=== PATIENT | male | born 1995 | race Caucasian/White ===

== ENCOUNTER → 2021-08-25 | Outpatient (CLI) | payer OTHER ==
--- NOTE | 2021-08-25 10:23 | RAD ---
US TESTICULAR History: LT TESTICULAR SWELLING X1 YEAR, RADIATING PAIN TO PELVIS Comparison: None. Technique: Multiple grayscale, color flow Doppler and Doppler spectral analysis images of the scrotum are obtained. Findings: Right testicle measures 4.5 x 1.7 x 2.7 cm. Right testicle demonstrates normal parenchymal echogenici ty. The right epididymis is unremarkable. Left testicle measures 3.9 x 1.6 x 2.8 cm. Left testicle demonstrates normal parenchymal echogenicity . The left epididymis is unremarkable. There is no hydrocele. Multiple dilated left pampiniform plexus vessels measure up to 5 mm diameter w ith Valsalva. No scrotal hyperemia or swelling. Doppler imaging demonstrates normal flow to both testicles, without evidence of torsion. IMPRESSION: 1. Left varicocele. 2. No evidence of testicular mass or torsion. Electronically signed by: Ashutosh Gonzales MD (08/25/2021 10:20 AM) [id number]
== END ==
LOC: US 09:29
PROVIDERS: ATTEND Nurse Practitioner Adult Health
DX: I86.1 Scrotal varices (principal); N49.2 Inflammatory disorders of scrotum; N50.89 Other specified disorders of the male genital organs
CPT/HCPCS: 76870

== ENCOUNTER 2021-09-01 17:37 | Emergency (ER) | payer OTHER ==
[~2021-09-01] VITALS: Ht 185.4 cm; Wt 79.6 kg
--- NOTE | 2021-09-01 17:58 | PHYS DOC ---
Past History Past Medical History: No Pertinent History Past Surgical History: Other Additional Past Surgical Histo: Left ACL reconstruction Smoking: Non-smoker Alcohol Use: Rarely Additional Alcohol Information: Social EtOH Drug Use: None General Adult EDM: Chief Complaint: TESTICULAR PAIN OR INJURY HPI: HPI: 26-year-old male presents to the emergency department via triage with a chief complaint of left-sided testicular pain and swelling since Monday. He reports presenting for outpatient management of same complaint earlier in the week where an outpatient scrotal ultrasound was done. [facility] taken on 25 August reported a left-sided varicocele without evidence of torsion or vascular issues. We were unable to locate results from a u rinalysis taken earlier in the week. Patient reports similar pain as previously; -04/03, constant, throbbing. Pain radiates to proximal left pelvis and lower left back. His testicular pain is worse with walking and weight bearing and improves with lying down. Patient denies dysuria, reports last period of sexual activity being in November with none since. Patient denies family history of kidney disease or testicular torsion. Patient denies any recent surgeries. Patient denies any history of hernia or feelings of a bulge in his groin. Patient denies recent trauma to the region Patient reports that the left testicle has a bag of worms appearance on the lower portion. He states that this appearance has been stable over the last year approximately with no recent significant changes other than the pain this week. Review of Systems: Review of Systems: Constitutional: Denies fever or chills Eyes: Denies redness or eye pain HENT: Denies nasal congestion or sore throat Respiratory: Denies cough or shortness of breath Cardiovascular: Denies chest pain or palpitations GI: Denies abdominal pain, nausea, or vomiting : Denies dysuria or hematuria; reports left testicular pain and swelling Musculoskeletal: Denies joint pain; reports left lower back pain Integument: Denies rash or skin lesions Neurologic: Denies headache, focal weakness or sensory changes Complete systems were reviewed and found to be within normal limits, except as documented in this note. Family History: Family History: Denies family history of cystic kidney disease or testicular pathology Allergies: Allergies: Allergies Coded Allergies Type Severity Reaction Last Updated Verified No Known Drug Allergies 08/26/14 No Physical Exam: PE: Constitutional: Well developed, well nourished, no acute distress, non-toxic appearance HENT: Normocephalic, atraumatic Eyes: Conjunctiva normal, no discharge Neck: Normal range of motion, no tenderness, supple Lungs & Thorax: No respiratory distress, normal chest wall excursion bilaterally, lungs clear to auscultation all rodas, +2 peripheral pulses bilaterally, regular rate and rhythm Abdomen: Soft, no tenderness on palpation of all quadrants, no rebound tenderness, no abdominal bruit appreciated : On visual inspection of the patient's scrotum the left side was twice as large as the right, the skin on the left side was mildly erythematous without skin breakdown or ulceration, the inferior portion of the left testicle was appreciated to be firm and indurated, uncertain cremasteric reflex bilaterally, negative Prehn sign on the left. Skin: Warm, dry, no erythema, no rash Back: No tenderness, no CVA tenderness bilaterally Extremities: No tenderness, ROM intact, no edema Neurologic: Alert and oriented X 3, normal motor function, normal sensory function, no focal deficits noted Psychologic: Affect normal, judgment normal Current Patient Data: Vital Signs: Vital Signs Date Time Temp Pulse Resp B/P (MAP) Pulse Ox O2 Delivery O2 Flow Rate FiO2 09/01/21 17:44 98.3 65 16 143/90 (107) 99 Room Air EKG: EKG: [] Radiology/Procedures: Radiology/Procedures: [] Impressions: PROCEDURE: TESTICULAR/SCROTUM EXAMINATION: US TESTICULAR (SCROTAL ULTRASOUND) CLINICAL HISTORY: Left testicular swelling/pain, eval for torsion TECHNIQUE: Sonography of the scrotal contents with color flow and spectral Doppler imaging of the testicular vasculature was performed. COMPARISON: 08/25/2021 FINDINGS: RIGHT SCROTUM: - Right Testis: 4.3 x 2.4 x 1.9 cm. Homogeneous with no calcifications or mass. Normal intratesticular arterial and venous flow with normal spectral waveforms. - Right Epididymis: Within normal limits. Vascular flow on Color Doppler symmetric to the contralateral side. - Hydrocele: None. - Varicocele: Absent. LEFT SCROTUM: - Left Testis: 4.2 x 3.0 x 2.2 cm. Homogeneous with no calcifications or mass. Normal intratesticular arterial and venous flow with normal spectral waveforms. - Left Epididymis: Within normal limits. Vascular flow on Color Doppler symmetric to the contralateral side. - Hydrocele: None. - Varicocele: Previously noted varicocele is not appreciated on available images. IMPRESSION: Unremarkable exam. Previously noted left-sided varicocele is not appreciated on available images. Electronically signed by: Marshall Thomas DO (09/01/2021 9:34 PM) [facility] Heart Score: C/O Chest Pain: N/A Course & Med Decision Making: Course & Med Decision Making 26-year-old male presents with a chief complaint of left testicular pain since earlier in the week reports already having had outpatient work-up including urinalysis and ultrasound. Unable to find prior urinalysis results however we were able to locate results of ultrasound taken on 25 August of this year. Ultrasound demonstrated no vascular issues and no torsion. A left-sided varicocele was appreciated on ultrasound taken earlier this year. Patient reports that the pain has become more constant than earlier this week. Patient denies any recent surgeries. Physical exam concerning for an acute change in the patient's baseline testicular pathology. Concern for potential scrotal hematoma secondary to varicocele rupture versus potential torsion. Plan for urinalysis in the department as well as repeat ultrasound due to physical exam findings and change from testicular baseline presentation. Urine chlamydia and gonorrhea cultures obtained and pending. Empiric antibiotics provided. Patient's urinalysis is unremarkable. Ultrasound was interpreted by radiologist to be unremarkable with no acute changes. After discussion with patient plan for discharge with prescription for pain medications. Advised patient to follow-up outpatient with urology. Patient and mother reports they area awaiting referral for urology per PCP. Patient was informed that should any significant worsening of his pain occur or any fevers start that he should present immediately to an emergency department associated with the hospital that has urology available. Deborah Disclaimer: Deborah Disclaimer: This electronic medical record was generated, in whole or in part, using a voice recognition dictation system. Departure Departure: Impression: Primary Impression: Scrotal pain Disposition: HOME / SELF CARE / HOMELESS Condition: STABLE Referrals: PCP,[facility] (PCP) Patient Instructions: Epididymitis, Orchitis, Scrotal Hematoma, Scrotal Swelling Additional Instructions: It is unclear what is causing your pain and left sided swelling. Repeat ultrasound was not able to demonstrate a cause of your condition. Please follow closely with urology for further evaluation and treatment. Take pain medication as needed including over the counter ibuprofen or tylenol. Prescribed pain medication has tylenol included. Do NOT take both medications. If symptoms worsen or for fever > 100.3 F, please present directly to an Emergency Department with Urology capability/consultation. Scripts Doxycycline Hyclate (DOXYCYCLINE HYCLATE) 100 Mg Tablet 1 TAB PO BID for Orchitis, #20 TAB Prov: RAEANN HALE DO 09/01/21 Hydrocodone Bit/Acetaminophen (HYDROCODONE-APAP 5-325 ) 1 Each Tablet 0.5-1 TAB PO PRN Q6HRS PRN for PAIN, #14 TAB 0 Refills Prov: RAEANN HALE DO 09/01/21 RAEANN HALE DO Sep 01, 2021 17:58
[2021-09-01 20:20] LABS: CLARITY,URINE CLEAR; COLOR,URINE YELLOW
[2021-09-01 20:21] LABS: BACTERIA,URINE 0 /HPF (0-FEW); BILIRUBIN,URINE NEG (NEG); GLUCOSE,URINE NEG (NEG); NITRITE,URINE NEG (NEG); RBC,URINE 0 /HPF (0-2); SQUAMOUS EPITHELIAL CELL,UR OCC /LPF; UROBILINOGEN,URINE 0.2 mg/dL (0.2 mg/dL); WBC,URINE OCC /HPF (0-4)
[2021-09-01 21:18] VITALS: BP 123/65
--- NOTE | 2021-09-01 21:36 | RAD ---
EXAMINATION: US TESTICULAR (SCROTAL ULTRASOUND) CLINICAL HISTORY: Left testicular swelling/pain, eval for torsion TECHNIQUE: Sonography of the scrotal contents with color flow and spectral Doppler imaging of the louisa ticular vasculature was performed. COMPARISON: 08/25/2021 FINDINGS: RIGHT SCROTUM: - Right Testis: 4.3 x 2.4 x 1.9 cm. Homogeneous with no calcifications or mass. Normal intratestic ular arterial and venous flow with normal spectral waveforms. - Right Epididymis: Within normal limits. Vascular flow on Color Doppler symmetric to the contrala teral side. - Hydrocele: None. - Varicocele: Absent. LEFT SCROTUM: - Left Testis: 4.2 x 3.0 x 2.2 cm. Homogeneous with no calcifications or mass. Normal intratesticu lar arterial and venous flow with normal spectral waveforms. - Left Epididymis: Within normal limits. Vascular flow on Color Doppler symmetric to the contralat eral side. - Hydrocele: None. - Varicocele: Previously noted varicocele is not appreciated on available images. IMPRESSION: Unremarkable exam. Previously noted left-sided varicocele is not appreciated on available images. Electronically signed by: Marshall Thomas DO (09/01/2021 9:34 PM) [facility]
[2021-09-01] MEDS ORDERED: HYDR-2155 PO (22:14)
[2021-09-01] MEDS ORDERED: HYDROcodone/APAP 5/325MG 1 TAB TABLET PO ONE (22:15)
[2021-09-01] MEDS ORDERED: cefTRIAXone SODIUM 1 GM VIAL ONE (22:27)
[2021-09-01] MEDS ORDERED: DOXY100T PO (22:27)
[2021-09-01] MEDS ORDERED: cefTRIAXone IM 500 MG VIAL. IM ONE (22:30)
== END 2021-09-01 22:37 | disposition home or self-care (01) ==
LOC: ER 17:37
DX: N50.82 Scrotal pain (principal); N50.812 Left testicular pain; M54.59 Other low back pain
CPT/HCPCS: 36415; 76870; 81001; 87491; 87591; 96372; 99284; J0696